=== PATIENT | female | born 1975 | race Caucasian/White ===

== ENCOUNTER 2022-09-23 23:41 | Emergency (ER) | payer OTHER ==
[~2022-09-23] VITALS: Ht 152.4 cm; Wt 66.3 kg
[2022-09-23 23:50] VITALS: BP 128/91
--- NOTE | 2022-09-23 23:55 | NUR ---
to lobby a/w bed ambulatory
--- NOTE | 2022-09-24 01:00 | NUR ---
to bed 09.
--- NOTE | 2022-09-24 01:13 | NUR ---
DR GUTIÉRREZ AT BEDSIDE FOR EXAM
[2022-09-24] MEDS ORDERED: FAMOTIDINE 20 MG TAB PO ONE (01:20)
[2022-09-24] MEDS ORDERED: ONDANSETRON 4 MG ODT PO ONE (01:20)
[2022-09-24] MEDS ORDERED: ALUMINUM HYD/MAG/SIMETHICONE 30 ML UDC PO ONE (01:20)
[2022-09-24 01:27] LABS: BASOPHILS % (AUTO) 0.4 % (0.0-2.0); EOSINOPHILS # (AUTO) 0.1 K/uL (0-0.4); EOSINOPHILS % (AUTO) 0.6 % (0.0-4.0); HEMATOCRIT 42.6 % (36-48); HEMOGLOBIN 13.9 g/dL (12.0-16.0); LYMPHOCYTES # (AUTO) 1.6 K/uL (2.5-16.5); LYMPHOCYTES % (AUTO) 18.5 % (20.5-51.1); MEAN CORPUSCULAR HEMOGLOBIN 28 pg (27-31); MEAN CORPUSCULAR HGB CONC 33 g/dL (33-37); MEAN CORPUSCULAR VOLUME 84.3 fL (80-94); MONOCYTES # (AUTO) 0.5 K/uL (0.8-1.0); NEUTROPHILS # (AUTO) 6.5 K/uL (1.8-7.7); NEUTROPHILS % (AUTO) 74.5 % (42.2-75.2); PLATELET COUNT (AUTO) 307 K/uL (140-450); RED BLOOD CELL COUNT(AUTO) 5.06 MIL/uL (4.20-5.40); RED CELL DISTRIBUTION WIDTH 14.5 % (11.6-13.7); WHITE BLOOD COUNT (AUTO) 8.8 K/uL (4.8-10.8)
--- NOTE | 2022-09-24 01:38 | NUR ---
UNABLE TO PROVIDE URINE AT THIS TIME
[2022-09-24 01:47] LABS: ANION GAP 11.5 (8-16); CARBON DIOXIDE 28.5 mmol/L (21-32); CREATININE 0.8 mg/dL (0.6-1.3); TOTAL BILIRUBIN 0.6 mg/dL (0.0-1.0)
--- NOTE | 2022-09-24 02:40 | NUR ---
AMBULATED TO BR FOR UA
[2022-09-24 02:44] LABS: APPEARANCE,URINE SL CLOUDY (CLEAR); BILIRUBIN,URINE NEGATIVE (NEGATIVE); BLOOD, URINE NEGATIVE (NEGATIVE); COLOR,URINE YELLOW (YELLOW); LEUKOCYTE ESTERASE ,URINE TRACE (NEGATIVE); NITRITE, URINE POSITIVE (NEGATIVE); UGLUCOSE NEGATIVE (NEGATIVE)
[2022-09-24 02:58] LABS: RBC,URINE 0-5 /HPF (0-5)
[2022-09-24] MEDS ORDERED: FAMO-90 PO (03:16)
[2022-09-24] MEDS ORDERED: SUCR1TAB35 PO (03:16)
[2022-09-24] MEDS ORDERED: CEPH-588 PO (03:16)
[2022-09-24 04:10] VITALS: BP 128/91
--- NOTE | 2022-09-24 04:10 | NUR ---
Patient discharged with v/s stable. Written and verbal after care instructions given and explained. Patient alert, oriented and verbalized understanding of instructions. Ambulatory with steady gait. All questions addressed prior to discharge. ID band removed. Patient advised to follow up with PMD. Rx of KEFLEX, PEPCID, CARAFATE given. Patient educated on indication of medication including possible reaction and side effects. Opportunity to ask questions provided and answered.
== END 2022-09-24 04:10 | disposition home or self-care (01) ==
LOC: MED 23:41
DX: N30.00 Acute cystitis without hematuria (principal); R10.13 Epigastric pain
CPT/HCPCS: 36415; 71045; 80053; 81001; 81025; 83690; 85025; 87086; 93005; 99285; Q0162